=== PATIENT | female | born 1945 | race Caucasian/White ===

== ENCOUNTER → 2024-02-10 08:22 | Outpatient (REF) | payer MEDICARE, OTHER, SELFPAY | LOC: WDC 08:22 | PROVIDERS: ATTENDING PHYSICIAN Nurse Practitioner | DX: Z12.31 Encounter for screening mammogram for malignant neoplasm of breast (principal) | CPT/HCPCS: 77063; 77067 ==

== ENCOUNTER 2024-04-22 20:54 | Emergency (ER) | payer MEDICARE, OTHER, SELFPAY ==
[2024-04-22 21:02] VITALS: BP 140/76
[2024-04-22 21:13] VITALS: BMI 22.3
[2024-04-22 21:36] VITALS: BP 137/78
--- NOTE | 2024-04-22 21:36 | ED.GENMED ---
History of Present Illness
General
Chief Complaint: Heart Rate Problem
Source: patient
Exam Limitations: none
Time Seen by Provider: 04/22/24 21:26
Nursing documentation reviewed up to this point in time: agreed with
History of Present Illness
History of Present Illness:
78-year-old female presents emergency room complaining of her heart racing and pounding. She has a history of abnormal EKG.
Past History
Past History
ED Past Medical History: Other (Syncope)
ED Past Surgical History: Other (Cataract surgery)
Social History
Tobacco: Non-smoker
Alcohol: None
Drug: None
Personal:
Living: with family
Review of Systems
Review of Systems
Allergies reviewed?: Yes
All Other Systems: Not applicable
Constitutional: Reports no symptoms
EENT: Reports no symptoms
Respiratory: Reports no symptoms
Cardiac: Reports palpitations
ABD/GI: Reports no symptoms
: Reports no symptoms
Musculoskeletal: Reports no symptoms
Skin: Reports no symptoms
Neurological: Reports no symptoms
Endocrine: Reports no symptoms
Hematologic/Lymphatic: Reports no symptoms
Psychiatric: Reports no symptoms
Phy Exam
Physical Exam
Physical Exam:
Physical Exam
General: no apparent distress, not acutely ill
Neck: supple. no meningeal signs. normal posterior pharynx
Heart: s1/s2 regular rate and rhythm, no murmur. equal radial
pulses.
HEENT: Pupils equal round reactive to light, EOMI
Lungs: no acute respiratory distress. clear bilaterally
Abdomen: normal bowel sounds. not tender. no CVAT
Neuro: alert and oriented. no focal neurological deficits cranial nerves II through XII intact
Skin: no rash
Psychiatric: well kept. interactive and cooperative
Extremities: no edema. no calf tenderness. negative homans. good distal pulses
Course
Orders/Labs/Results
Orders:
Orders
04/22/24 20:55
EKG [Electrocardiogram (*1)] Urgent
Reason for Study: Palpitations
EKG- Treatment ONCE
04/22/24 21:26
EKG- Treatment ONCE
04/22/24 21:28
Complete Blood Count/With Diff Urgent
Comprehensive Metabolic Panel Urgent
04/22/24 21:39
Troponin I Urgent
04/22/24 21:42
TSH Urgent
Comment: ADD ON
04/22/24 21:46
Add On- LAB Urgent
Tests Added?: tsh
04/23/24 00:37
Troponin I Urgent
Abnormal Lab Results
04/22/24
21:28
MCH 32.9 H pg
(27.0-31.0)
Monocytes % 9.5 H %
(1.7-9.3)
Glucose 126 H mg/dl
(70-99)
04/22/24 21:28
04/22/24 21:28
Vital Signs
Initial and Last Documented VS:
Initial Vital Signs
Temp Pulse Resp BP Pulse Ox
98.2 F 78 20 140/76 96
04/22/24 21:02 04/22/24 21:02 04/22/24 21:02 04/22/24 21:02 04/22/24 21:02
Last Documented Vital Signs
Temp Pulse Resp BP Pulse Ox
98.2 F 93 16 139/86 95
04/22/24 21:02 04/23/24 01:30 04/23/24 01:30 04/23/24 01:35 04/23/24 00:45
MDM/Problems Addressed
Differential Diagnosis Includes:
Palpitations, ACS
MDM/Problems Addressed:
78 yo female with palpiations, no dysrhythmias.
*Pulse Oximetry
Patient hypoxic: no
*EKG
Interpreted by ED Provider?: Yes
EKG Intrepretation Date: 04/22/24
EKG Intrepretation Time: 21:02
Interpretation: abnormal
Comparison EKG: changes noted
Heart Rate: 105
Rate: tachycardiac
Rhythm: sinus tachycardia
[place]: normal axis
Interval: normal interval
QRS Pattern: normal QRS
Ischemia: no ischemia
*Lamp Decorator Interpretation
Rate: normal
Interpretation: normal
Heart Rate: 80
Rhythm: sinus
*Critical Care Note
Total Time (30-74mins, 75-104mins- exclusive of procedures): Not Applicable
ED Attending Note
-
Portions of this chart may have been created with voice recognition software.� Occasional wrong word or��sound alike� substitutions may have occurred due to the inherent limitations of voice recognition software.
Discharge Plan
Departure
Patient Disposition: Home (Routine Discharge)
Patient with high blood pressure during this ER visit?: Yes
Condition: Good
Discharge Problem:
Chest pain, Heart palpitations
Instructions: Chest Pain DCA Follow Up
Prescriptions:
No Action
Evista
1 tab PO DAILY
Synthroid
75 mcg PO DAILY
tobramycin-dexamethasone [TobraDex] 1 APPLIC ointment
1 applic OPHTHALMIC HS
gatifloxacin [Zymar] 1 DROP drops
1 drp OPHTHALMIC BID
bromfenac [Bromday] 1.7 ML drops
1 drp OP DAILY
difluprednate [Durezol] 5 ML drops
1 drp OP BID
Cyclogyl
1 applic OP BID
ondansetron HCl 4 MG tablet
4 mg PO TIDPRN PRN (Reason: nausea) Qty: 8 0RF
oxycodone-acetaminophen 5 MG/325 MG tablet
1 tab PO Q4HPRN PRN (Reason: back pain) Qty: 20 0RF
Referrals:
Michela Russell CRNP [Family Provider] -
Interventions
Interventions:
*Risk Screen - Suicide Last Done: 04/22/24 21:02
*General Assessment Last Done: 04/22/24 21:53
*Neglect/Abuse Screening Last Done: 04/22/24 21:02
ED- Fall Risk Assessment Last Done: 04/22/24 21:53
*ED COVID-19 Vaccine History Last Done: 04/22/24 21:53
*Nursing Disposition Last Done: 04/23/24 01:44
ED- Cardiac Assessment Last Done: 04/22/24 21:53
ED- Pulmonary Assessment Last Done: 04/22/24 21:53
Discharge Date and Time
Discharge Date/Time: 04/23/24 01:45
Print Language: THAI
[2024-04-22 21:44] LABS: % Basophils 1.2 % (0-2); % Eosinophils 1.9 % (0-6); % Immature Granulocytes 0.4 % (0-0.5); % Lymphocytes 33.3 % (20.5-51.1); % Monocytes 9.5 % (1.7-9.3); % Neutrophils 53.7 % (42.2-75.2); Absolute Basophils 0.1 10^3/uL (0-0.2); Absolute Eosinophils 0.1 10^3/uL (0-0.7); Absolute Lymphocytes 1.9 10^3/uL (1.2-3.4); Absolute Monocytes 0.5 10^3/uL (0.1-0.6); Absolute Neutrophils 3.1 10^3/uL (1.4-6.5); Hematocrit 39.9 % (37.0-47.0); Mean Corp Hgb Conc. 35.1 g/dL (33.0-37.0); Mean Corpuscular Hgb 32.9 pg (27.0-31.0); Mean Corpuscular Volume 93.7 fL (81.0-99.0); Mean Platelet Volume 9.7 fL (7.4-10.4); Nucleated Red Blood Cells % 0 %; Platelet Count 254 10^3/uL (130-400); Red Blood Cell Count 4.26 10^6/uL (4.20-5.40); Red Cell Dist. Width 12.5 % (11.5-14.5); White Blood Cell Count 5.7 10^3/uL (4.8-10.8)
[2024-04-22 21:57] LABS: ALT (SGPT) 20 U/L (0-35); AST (SGOT) 31 U/L (14-36); Albumin 4.6 g/dl (3.5-5.0); Alkaline Phosphatase 67 U/L (38-126); Blood Urea Nitrogen 16 mg/dl (7-17); Carbon Dioxide 26 mmol/L (22-30); Chloride 103 mmol/L (98-107); Estimated Creatinine Clearance 49 ml/min; Glucose 126 mg/dl (70-99); Potassium 3.7 mmol/L (3.5-5.1); Sodium 140 mmol/L (135-145); Total Bilirubin 0.9 mg/dl (0.2-1.3); eGFR > 60.00
[2024-04-22 22:00] VITALS: BP 132/61
[2024-04-22 22:08] LABS: Troponin I < 0.012 ng/ml
[2024-04-22 22:37] LABS: TSH 2.74 uIU/ml (0.47-4.68)
[2024-04-22 23:00] VITALS: BP 128/82
[2024-04-23 01:23] LABS: Troponin I < 0.012 ng/ml
[2024-04-23 01:35] VITALS: BP 139/86
== END 2024-04-23 01:45 | disposition home or self-care (01) ==
LOC: EMR 20:54
PROVIDERS: EMERGENCY PHYSICIAN Emergency Medicine; FAMILY PHYSICIAN Nurse Practitioner
DX: R07.89 Other chest pain (principal); R00.2 Palpitations
CPT/HCPCS: 99283; 80053; 84443; 84484; 85025; 93005

== ENCOUNTER 2024-04-29 10:44 | Emergency (ER) | payer MEDICARE, OTHER, SELFPAY ==
[2024-04-29 10:48] VITALS: BP 133/77
--- NOTE | 2024-04-29 12:19 | ED.GENMED ---
History of Present Illness
General
Chief Complaint: Dizziness
Source: patient and records
Time Seen by Provider: 04/29/24 12:01
History of Present Illness
History of Present Illness:
78yoF with a history of hypothyroidism presenting for evaluation of dizziness. Patient started with palpitations about 1 week ago. She was seen in the ED at that time and discharged after an unremarkable workup. She was referred to cardiology and
she has an appointment scheduled in 5 days. She continues to have palpitations throughout the week. She was seen by her PCP yesterday who told her that her symptoms were mostly likely related to PVCs. She was advised to return to the ED if she
developed any chest pain or dizziness. She started to feel lightheaded this morning and decided to come back to the ED. Her dizziness has improved but is still present. She denies any chest pain, syncope, shortness of breath. She also reports
feeling fatigued and uneasy. Her only medication is Synthroid.
Past History
Past History
ED Past Medical History: Other (Syncope)
ED Past Surgical History: Other (Cataract surgery)
Social History
Tobacco: Non-smoker
Alcohol: None
Drug: None
Personal:
Living: with family
Phy Exam
General Physical Exam
General Presentation: well appearing and no apparent distress
General age: appears stated age
General Skin: warm and dry
General Habitus: normal
General Mental: alert
ENT Exam
ENT Exam: normocephalic
Cardiovascular Exam
Cardiovascular Exam: regular rate/rhythm and no murmur
Pulmonary Exam
Pulmonary Exam: lungs clear, no respiratory distress, no rales, no crackles, no rhonchi and no wheezing
[place] Coma Scale
Eye Opening: Spontaneous
Verbal Response: Oriented
Motor Response: Obeys Commands
GCS Total Score: 15
Skin Exam
Skin Exam: normal color and warm/dry
Psychiatric Exam
Psychiatric Exam: normal mood/affect
Course
Orders/Labs/Results
Orders:
Orders
04/29/24 10:46
EKG [Electrocardiogram (*1)] Urgent
Reason for Study: Palpitations
EKG- Treatment ONCE
04/29/24 12:17
Cardiac Monitoring- Treatment ONCE
04/29/24 12:39
Complete Blood Count/With Diff Urgent
Comprehensive Metabolic Panel Urgent
Magnesium Urgent
Troponin I Urgent
Abnormal Lab Results
04/29/24
12:39
RBC 4.04 L 10^6/uL
(4.20-5.40)
MCH 34.2 H pg
(27.0-31.0)
Absolute Lymphs (auto) 0.9 L 10^3/uL
(1.2-3.4)
Lymphocytes % 18.7 L %
(20.5-51.1)
Glucose 135 H mg/dl
(70-99)
04/29/24 12:39
04/29/24 12:39
Vital Signs
Initial and Last Documented VS:
Initial Vital Signs
Temp Pulse Resp BP Pulse Ox
97.9 F 99 16 133/77 98
04/29/24 10:48 04/29/24 10:48 04/29/24 10:48 04/29/24 10:48 04/29/24 10:48
Last Documented Vital Signs
Temp Pulse Resp BP Pulse Ox
97.9 F 71 16 135/65 96
04/29/24 10:48 04/29/24 14:15 04/29/24 14:15 04/29/24 14:00 04/29/24 14:15
MDM/Problems Addressed
Differential Diagnosis Includes:
78yoF here with palpitations x 1 week and lightheadedness that began this morning. No CP or syncope. Seen in ED and by PCP for the same. She is afebrile and hemodynamically stable. She is well appearing in no distress. Exam is reassuring.
Differential diagnosis includes but is not limited to: arrhythmia, electrolyte abnormality, dehydration, less likely ACS
Initial ED plan: Place on quality assurance monitor. Check cardiac labs and EKG.
*EKG
Interpreted by ED Provider?: Yes
EKG Intrepretation Date: 04/29/24
Heart Rate: 82
Rate: normal
Rhythm: sinus
[place]: normal axis
Interval: normal interval
QRS Pattern: normal QRS
Ischemia: other (Nonspecific ST/T wave changes. Appears unchanged from EKG last week. )
*Critical Care Note
Total Time (30-74mins, 75-104mins- exclusive of procedures): Not Applicable
Update Note
Update Note:
Labs unremarkable including normal electrolyte. EKG shows NSR with nonspecific ST/T wave changes which were also present on EKG from last week. No ectopy noted. Troponin WNL. No telemetry events during ED stay. She is asymptomatic on reassessment.
No indication for admission. She has an appt with cardiology scheduled for next week. ED return precautions discussed. She expressed understanding and is agreeable to plan. She was discharged in stable condition.
ED Attending Note
-
Portions of this chart may have been created with voice recognition software.� Occasional wrong word or��sound alike� substitutions may have occurred due to the inherent limitations of voice recognition software.
Discharge Plan
Departure
Patient Disposition: Home (Routine Discharge)
Date of Disposition: 04/29/24
Time of Disposition: 14:28
Patient with high blood pressure during this ER visit?: No
Discharge Problem:
Palpitations, Lightheadedness
Instructions: Heart Palpitations
Prescriptions:
No Action
Evista
1 tab PO DAILY
Synthroid
75 mcg PO DAILY
tobramycin-dexamethasone [TobraDex] 1 APPLIC ointment
1 applic OPHTHALMIC HS
gatifloxacin [Zymar] 1 DROP drops
1 drp OPHTHALMIC BID
bromfenac [Bromday] 1.7 ML drops
1 drp OP DAILY
difluprednate [Durezol] 5 ML drops
1 drp OP BID
Cyclogyl
1 applic OP BID
ondansetron HCl 4 MG tablet
4 mg PO TIDPRN PRN (Reason: nausea) Qty: 8 0RF
oxycodone-acetaminophen 5 MG/325 MG tablet
1 tab PO Q4HPRN PRN (Reason: back pain) Qty: 20 0RF
Referrals:
Michela Russell CRNP [Family Provider] -
Activity Restrictions/Additional Instructions:
Please follow-up with cardiology on as previously scheduled.
Return to the ER with any worsening symptoms or chest pain.
Interventions
Interventions:
*Risk Screen - Suicide Last Done: 04/29/24 10:48
*General Assessment Last Done: 04/29/24 10:48
*Neglect/Abuse Screening Last Done: 04/29/24 10:48
ED- Fall Risk Assessment Last Done: 04/29/24 12:31
*ED COVID-19 Vaccine History Last Done: 04/29/24 12:30
*Nursing Disposition Last Done: 04/29/24 14:53
ED- Neurological Assessment Last Done: 04/29/24 12:43
ED- Cardiac Assessment Last Done: 04/29/24 12:43
ED Swallowing Screen Last Done: 04/29/24 12:43
Discharge Date and Time
Discharge Date/Time: 04/29/24 14:54
Print Language: DIVEHI
[2024-04-29 12:29] VITALS: BP 132/62; BMI 24.5
[2024-04-29 12:48] LABS: % Eosinophils 0.6 % (0-6); % Immature Granulocytes 0.2 % (0-0.5); % Lymphocytes 18.7 % (20.5-51.1); % Monocytes 7.1 % (1.7-9.3); % Neutrophils 72.4 % (42.2-75.2); Absolute Basophils 0.1 10^3/uL (0-0.2); Absolute Lymphocytes 0.9 10^3/uL (1.2-3.4); Absolute Monocytes 0.4 10^3/uL (0.1-0.6); Absolute Neutrophils 3.6 10^3/uL (1.4-6.5); Hematocrit 39.4 % (37.0-47.0); Hemoglobin 13.8 g/dL (12.0-16.0); Mean Corpuscular Hgb 34.2 pg (27.0-31.0); Mean Corpuscular Volume 97.5 fL (81.0-99.0); Mean Platelet Volume 9.6 fL (7.4-10.4); Nucleated Red Blood Cells % 0 %; Platelet Count 219 10^3/uL (130-400); Red Blood Cell Count 4.04 10^6/uL (4.20-5.40); Red Cell Dist. Width 12.2 % (11.5-14.5); White Blood Cell Count 4.9 10^3/uL (4.8-10.8)
[2024-04-29 13:00] VITALS: BP 118/71
[2024-04-29 13:02] LABS: ALT (SGPT) 16 U/L (0-35); AST (SGOT) 24 U/L (14-36); Albumin 4.3 g/dl (3.5-5.0); Alkaline Phosphatase 59 U/L (38-126); Blood Urea Nitrogen 9 mg/dl (7-17); Calcium 9.5 mg/dl (8.4-10.2); Carbon Dioxide 26 mmol/L (22-30); Chloride 103 mmol/L (98-107); Estimated Creatinine Clearance 56 ml/min; Glucose 135 mg/dl (70-99); Magnesium 2.1 mg/dl (1.6-2.3); Potassium 4.1 mmol/L (3.5-5.1); Sodium 139 mmol/L (135-145); Total Bilirubin 1.3 mg/dl (0.2-1.3); Total Protein 6.5 g/dl (6.3-8.2); eGFR > 60.00
[2024-04-29 13:11] LABS: Troponin I < 0.012 ng/ml
--- NOTE | 2024-04-29 13:13 | EDRN ---
Abscess cleansed w/ soap and water, rinsed w/ saline, padded dry w/gauze, double antibiotic ointment applied then ABD held in place w/underwear.
[2024-04-29 14:00] VITALS: BP 135/65
== END 2024-04-29 14:54 | disposition home or self-care (01) ==
LOC: EMR 10:44
PROVIDERS: Physician Assistant; EMERGENCY PHYSICIAN Emergency Medicine; FAMILY PHYSICIAN Nurse Practitioner
DX: R00.2 Palpitations (principal); R42 Dizziness and giddiness; E03.9 Hypothyroidism, unspecified
CPT/HCPCS: 99283; 80053; 83735; 84484; 85025; 93005

== ENCOUNTER → 2024-05-23 07:18 | Outpatient (REF) | payer MEDICARE, OTHER, SELFPAY | LOC: HWRCS 07:18 | PROVIDERS: ATTENDING PHYSICIAN Internal Medicine Cardiovascular Disease; FAMILY PHYSICIAN Nurse Practitioner | DX: I49.1 Atrial premature depolarization (principal) | CPT/HCPCS: 93306 ==

== ENCOUNTER → 2025-02-20 07:24 | Outpatient (REF) | payer MEDICARE, OTHER, SELFPAY | LOC: WDC 07:24 | PROVIDERS: ATTENDING PHYSICIAN Nurse Practitioner | DX: Z12.31 Encounter for screening mammogram for malignant neoplasm of breast (principal) | CPT/HCPCS: 77063; 77067 ==

== ENCOUNTER → 2025-06-01 06:36 | Outpatient (REF) | payer MEDICARE, OTHER, SELFPAY | LOC: MRI 3T 06:36 | PROVIDERS: ATTENDING PHYSICIAN Physician Assistant Surgical | DX: M25.562 Pain in left knee (principal) | CPT/HCPCS: 73721 ==